=== PATIENT | male | born 2000 | race Two or more races ===

== ENCOUNTER 2021-04-02 12:49 | Outpatient (REF) | payer OTHER, SELFPAY ==
[2021-04-02 14:51] LABS: COVID-19 Test Positive (Negative); IDNOW Serial# 16C4AD1C
== END 2021-04-02 12:50 | disposition home or self-care (01) ==
LOC: HO.LAB 12:49
PROVIDERS: Visit Provider Internal Medicine
DX: Z20.822 Contact with and (suspected) exposure to COVID-19 (principal)
CPT/HCPCS: 87635; C9803